=== PATIENT | male | born 1995 | race Caucasian/White ===

== ENCOUNTER → 2020-08-18 14:42 | Outpatient (BNVA) | payer BC, SELFPAY | PROVIDERS: PCP Family Medicine; Visit Provider Surgery | DX: Z76.89 Persons encountering health services in other specified circumstances (principal) ==

== ENCOUNTER 2020-09-09 09:42 | Day surgery (SDC) | payer BC, SELFPAY ==
[2020-09-02 15:50] VITALS: BMI 22.7
--- NOTE | 2020-09-07 14:27 | HO.ANESPROP2 ---
Documented by User: Shereen Robles 09/07/20 14:28 HPI - Anesthesia Eval Consult details Narrative: 25yo M for Right Hernia Repair Inguinal Daily ETOH, ? amount PMFSH Past Medical History Medical History Gastritis Mild intermittent asthma Right inguinal hernia Seasonal allergies Tinea versicolor Family History Family History Maternal Grandmother History of bone cancer Paternal Grandmother History of colon cancer Mother No problems noted. Father No problems noted. Surgical History Surgical History No pertinent past surgical history Social History Social History Are you a primary child care center administrator to a significant other at home: No Do you presently have visiting nurse or other home services: No Alcohol intake: current Alcohol intake frequency: 0-2 drinks per day Smoking Status: Current every day smoker Packs Per Day: 0.5 Cigarettes Per Day: 10.0 Years Smoked: 6 Smoked in Last 30 Days: Yes Patient Interested in Nicotine Replacement: No Patient Given Instructions on How to Stop Smoking: Yes Date Education Initiated: 09/02/20 Use of substances other than those prescribed or required for medical reasons: Yes Substance Use Frequency: Weekly Have you been hit, kicked, punched, or otherwise hurt by someone within the past year? If so, by whom?: No Advance Directives: No Advance Directives Information Provided: No Advance Directives on File: No Recently lost weight without trying: No Meds Allergies Allergy/AdvReac Type Severity Reaction Status Date / Time No Known Allergies Allergy Verified 09/02/20 15:13 Exam Exam Date and Time: September 07, 2020 1427 Height,Weight and Vital Signs: Height 6 ft Weight 76.113 kg Assessment and Plan Assessment Anesthesia Assessment: Chart Reviewed Documented by User: Beatriz Cobb 09/09/20 10:48 PMFSH Past Medical History Medical History Gastritis Mild intermittent asthma Right inguinal hernia Seasonal allergies Tinea versicolor Family History Family History Maternal Grandmother History of bone cancer Paternal Grandmother History of colon cancer Mother No problems noted. Father No problems noted. Surgical History Surgical History No pertinent past surgical history Social History Social History Are you a primary child care center administrator to a significant other at home: No Do you presently have visiting nurse or other home services: No Alcohol intake: current Alcohol intake frequency: 0-2 drinks per day Smoking Status: Current every day smoker Packs Per Day: 0.5 Cigarettes Per Day: 10.0 Years Smoked: 6 Smoked in Last 30 Days: Yes Patient Interested in Nicotine Replacement: No Patient Given Instructions on How to Stop Smoking: Yes Date Education Initiated: 09/02/20 Use of substances other than those prescribed or required for medical reasons: Yes Substance Use Frequency: Weekly Have you been hit, kicked, punched, or otherwise hurt by someone within the past year? If so, by whom?: No Advance Directives: No Advance Directives Information Provided: No Advance Directives on File: No Recently lost weight without trying: No Meds Allergies Allergy/AdvReac Type Severity Reaction Status Date / Time No Known Allergies Allergy Verified 09/02/20 15:13 Exam Airway Mallampati Class: I TM Dist: >3cm Neck ROM: Full Assessment and Plan Assessment Anesthesia Assessment: Anesthesia Plan Discussed and Chart Reviewed Final Anesthetic Review NPO: Yes ASA Class: II Final Preanesthetic Review: No Changes in Pt Med Stat, Meds/Allgs Chart Reviewed, Consent Obtained/Reviewed and Anes Risks/Benef Reviewed Patient Risk: Low Procedure Risk: Low Assessment/Block/Sedation in SS: Assess/Block/Sedation-SS Anesthetic Plan Anesthetic Plan: GA Disposition: Standard PACU
[2020-09-09] VITALS (7 sets, daily range): BP systolic 105–123; BP diastolic 62–82; PULSE 65–93; RESP 16–20; TEMP 36.6–36.8; O2SAT 99–100
[2020-09-09] MEDS: Lactated Ringers 1,000 ML 100 ML IVCONT (10:17)
--- NOTE | 2020-09-09 10:21 | MHC.SHP ---
Pre-Procedural Eval Section B Chief Complaint: Right inguinal hernia Allergies: Allergies Allergy/AdvReac Type Severity Reaction Status Date / Time No Known Allergies Allergy Verified 09/02/20 15:13 Plan I have reviewed the history and physical and performed a pertinent physical examination on my patient. No changes have occurred unless specified.
--- NOTE | 2020-09-09 11:44 | PM.OP ---
Brief Operative Note Date of Service: 09/09/20 Pre-op diagnosis: Right inguinal hernia Post-op diagnosis: same (Right inguinal hernia, indirect) Procedure: Repair of a right inguinal hernia with mesh Implants: Mesh Surgeon: César Lock MD Anesthesia: GLMA Estimated blood loss (mL): 2 Pathology: other (Hernia sac) Condition: stable Disposition: PACU
--- NOTE | 2020-09-09 11:45 | P.OP_ITS ---
Operative Note Operative Note Date of Service: 09/09/20 Narrative: PROCEDURE: REPAIR OF A RIGHT INGUINAL HERNIA WITH MESH AND PLUG PREOP DIAGNOSIS: RIGHT INGUINAL HERNIA POSTOP DIAGNOSIS: RIGHT INGUINAL HERNIA, INDIRECT SURGEON: JANE DE LA GARZA MD The patient is a 25-year-old male with a reducible mass in the right groin consistent with a right inguinal hernia. In view of symptoms, he wanted proceed with repair. He understood the technique of repair with mesh. He was aware of the risks, benefits, and alternatives. The patient was brought to the operating room and placed supine on OR table under general anesthesia via laryngeal mask airway. The right groin was prepped and draped in the usual sterile fashion. A surgical time-out was done. The patient received cefazolin 2 g IV preoperatively. I infiltrated the planned line of incision using lidocaine 1%. I then made a short incision on the skin using a blade 15 along an imaginary line from the anterior superior iliac spine to the pubic ramus. This excision was carried down to the full-thickness of the skin and subcutaneous fat using electrocautery. We then proceeded to define the external oblique aponeurosis. By doing so I was able to visualize the external ring and this was bluntly dissected as well. I made an incision on the external oblique aponeurosis using electrocautery and this was extended inferomedially to connect with the external ring. The inguinal canal was therefore entered. Hemostats were placed on the edges of the divided external oblique aponeurosis. I bluntly dissected the underside of the aponeurosis to create a pocket for the mesh repair. I then bluntly dissected the spermatic cord and its contents using an index finger until was able to pass a Fareed drain around this. This Killbuck drain was used for retraction. I identified the vas deferens and its accompanying vessels. I was able to then identify the hernia sac anteromedially. I proceeded to gently and bluntly dissect the sac off of the rest of the cord contents until was able to define this all way down to the internal ring. The sac was twisted and clamped. I divided the sac above the clamp. I applied a suture ligature with a Dexon 3-0 on the stump. I then reinforced the internal ring with a Prolene plug. The plug was secured with Prolene 2-0 sutures to the shelving edge of the inguinal ligament laterally, and the internal oblique superiorly and medially using it is inner leaves. I reinforced the floor of the canal with a keyhole mesh. The tails of the mesh were passed around the cord at the level of internal ring and were secured together with Prolene 2-0 sutures. The mesh was flattened on the floor and this was secured with Prolene 2-0 sutures to shelving edge of the inguinal ligament laterally, the internal oblique superiorly and medially, and the pubic ramus inferomedially. I observed for hemostasis. I copiously irrigated and suctioned the irrigant fluid. Once hemostasis was ensured, I proceeded to close the external oblique aponeurosis with a running Dexon 2-0 stitch to re-create the external ring. We made sure that the ilioinguinal nerve within the sutures. I closed the subcutaneous layer with Dexon 3-0 interrupted sutures. Skin closure was achieved with Dexon 4-0 subcuticular running sutures. Steri-Strips and dressings were then applied. The incision was infiltrated with Marcaine 0.5% for postop analgesia and the procedure was then completed. The patient tolerated the procedure well. There were no immediate complications noted. Initial and final counts of sponges and instruments were correct. Estimated blood loss about 5 cc. The patient was extubated without difficulty and transferred to the recovery room with stable vital signs.
[2020-09-09] MEDS: oxyCODONE HCl Immed Release 5 MG TABLET PO (12:11)
[2020-09-09] MEDS: Acetaminophen 325 MG TABLET 650 MG PO (12:12)
--- NOTE | 2020-09-09 13:40 | HO.POSTANES ---
Post Anesthesia Evaluation Post Anesthesia Evaluation Vital Signs: Vital Signs Temp Pulse Resp BP Pulse Ox 09/09/20 12:30 98.0 F 65 20 105/62 99 09/09/20 12:15 73 20 113/78 100 09/09/20 12:00 71 18 116/79 100 09/09/20 11:55 72 18 115/75 99 09/09/20 11:50 77 18 123/75 100 09/09/20 11:45 97.8 F 80 16 113/68 100 09/09/20 10:11 98.3 F 93 16 117/82 100 Anesthesia: General LMA Mental Status: Awake Pain Control: Satisfactory Nausea/Vomiting: None Hydration: Adequate Anesthesia-Related Issues: No Anes. Related Issues
== END 2020-09-09 13:09 | disposition home or self-care (01) ==
PROVIDERS: PCP Family Medicine; Visit Provider Surgery
PROC: (CPT 49505; principal; 2020-09-09 12:50)
DX: K40.90 Unilateral inguinal hernia, without obstruction or gangrene, not specified as recurrent (principal)
CPT/HCPCS: 49505; 88302; C1781; J0690; J1100; J2250; J2405; J3010

== ENCOUNTER → 2020-09-22 10:51 | Outpatient (BNVA) | payer BC, SELFPAY | PROVIDERS: PCP Family Medicine; Visit Provider Surgery ==